=== PATIENT | female | born 1955 | race Caucasian/White ===

== ENCOUNTER 2017-03-24 13:00 | Inpatient (IN) | payer MEDICARE ==
[~2017-03-24] VITALS: Ht 157.5 cm; Wt 78.6 kg
[~2017-03-24 13:00] MED LIST: AMLO5 PO; Acular3 ML LEFTEYE; BUSP15 PO; Bactrim Ds Tab1 EACH PO; CETI5 PO; ERYT.5TO LEFTEYE; Flonase 0.05% N16 GM; IBUP800 PO; Keppra1000 MG PO; Keppra750 MG PO; LAMO100 PO; Lamictal150 MG PO; Levetiracetam1000 MG PO; METF500 PO; METO25ER PO; Norco 5-325 Ta1 EACH PO; Ocuflox5 ML LEFTEYE; QUET25 PO; RANI150 PO; SODCHL2SO BOTHEYES
[2017-03-24] MEDS ORDERED: Zantac150 MG PO (13:28)
[2017-03-24] MEDS ORDERED: BUSP15 PO ×2 (13:28)
[2017-03-24] MEDS ORDERED: LAMO100 PO ×2 (13:28)
[2017-03-24] MEDS ORDERED: ALBU90OI ×2 (13:28)
[2017-03-24] MEDS ORDERED: LEVE500 PO ×2 (13:28)
[2017-03-24] MEDS ORDERED: IBUP800 ×2 (13:28)
[2017-03-24] MEDS ORDERED: QUET100 PO ×2 (13:28)
[2017-03-24] MEDS ORDERED: METO25ER PO ×2 (13:29)
[2017-03-24] MEDS ORDERED: ASPI81CH PO ×2 (13:29)
[2017-03-24] MEDS ORDERED: METF500C (13:29)
[2017-03-24] MEDS ORDERED: SODCHL3.5O ×2 (13:29)
[2017-03-24 13:37] LABS: BASOPHILS ABSOLUTE AUTO 0.06 K/mm3 (0.00-0.23); BASOPHILS PERCENT AUTO 0 % (0-2); EOSINOPHILS PERCENT AUTO 0 % (0-6); Hematocrit 40.7 % (33.0-51.0); Hemoglobin 13.5 g/dL (11.5-16.0); IMMATURE GRAN ABSOLUTE AUTO 0.17 K/mm3 (0.00-0.10); IMMATURE GRAN PERCENT AUTO 1 % (0-1); LYMPHOCYTES ABSOLUTE AUTO 0.96 K/mm3 (0.84-5.20); LYMPHOCYTES PERCENT AUTO 5 % (21-46); MONOCYTES ABSOLUTE AUTO 1.34 K/mm3 (0.16-1.47); MONOCYTES PERCENT AUTO 7 % (4-13); Mean Corpuscular HGB 28.1 pg (26.0-34.0); Mean Corpuscular HGB Conc 33.2 g/dL (31.5-36.5); Mean Corpuscular Volume 85 fL (80-100); Mean Platelet Volume 9.7 fL (9.1-12.4); NEUTROPHILS ABSOLUTE AUTO 16.77 K/mm3 (1.96-9.15); NEUTROPHILS PERCENT AUTO 87 % (41-73); Platelet Count 281 K/mm3 (150-400); RDW Standard Deviation 36.5 fL (35.1-46.3); Red Blood Cell Count 4.81 M/mm3 (3.80-5.20)
[2017-03-24 13:53] LABS: Source, Urine Clean Catch
[2017-03-24 13:54] LABS: Alanine Aminotransfer (ALT/SGP 18 U/L (12-78); Albumin/Globulin Ratio 1.1 (0.8-1.8); Alk Phos 73 U/L (50-136); Anion Gap 10 mmol/L (6-16); Aspartate Aminotrans (AST/SGOT 12 U/L (12-37); Blood Urea Nitrogen 8 mg/dL (8-24); Bun/Creatinine Ratio 9.7 (12.0-20.0); CO2, Blood 23 mmol/L (21-32); Calcium, Blood 9.2 mg/dL (8.5-10.1); Chloride, Blood 101 mmol/L (98-108); Creatinine, Blood 0.82 mg/dL (0.40-1.00); Globulin, Blood 3.8 g/dL (2.2-4.0); Glomerular Filtration Rate >60 (60-); Glucose, Blood 196 mg/dL (70-99); Potassium, Blood 3.3 mmol/L (3.5-5.5); Sodium, Blood 134 mmol/L (136-145); Total Protein, Blood 7.8 g/dL (6.4-8.2)
[2017-03-24 14:00] LABS: Bilirubin, Urine Neg (Neg); Blood, Urine 4+ (Neg); Glucose Qualitative, Urine Neg (Neg); Ketones, Urine Neg (Neg); Leukocyte Esterase, Urine 3+ (Neg); Nitrite, Urine Pos (Neg); Protein, Urine 3+ (Neg); Specific Gravity, Urine 1.015 (1.003-1.022); Urobilinogen, Urine NORM (Normal)
[2017-03-24 14:05] LABS: Appearance, Urine Hazy (Clear); Color, Urine Yellow (P-Yellow); White Blood Cells, Urine TNTC /hpf (0-5)
[2017-03-24 14:06] LABS: Bacteria Mod /hpf; Squamous Epithelial Cells Few /hpf (Few)
[2017-03-24 14:17] LABS: Influenza A Negative (NEGATIVE); Influenza B Negative (NEGATIVE)
[2017-03-25 05:44] LABS: Hematocrit 36.5 % (33.0-51.0); Hemoglobin 11.8 g/dL (11.5-16.0); Mean Corpuscular HGB 28.3 pg (26.0-34.0); Mean Corpuscular HGB Conc 32.3 g/dL (31.5-36.5); Platelet Count 215 K/mm3 (150-400); RDW Coefficient Variation 12.4 % (11.7-14.2); RDW Standard Deviation 39.7 fL (35.1-46.3); Red Blood Cell Count 4.17 M/mm3 (3.80-5.20); White Blood Cell Count 14.75 K/mm3 (4.00-11.30)
[2017-03-25 05:50] LABS: Mean Corpuscular Volume 88 fL (80-100)
[2017-03-25 06:05] LABS: Albumin, Blood 3.1 g/dL (3.4-5.0); Anion Gap 9 mmol/L (6-16); Blood Urea Nitrogen 9 mg/dL (8-24); Bun/Creatinine Ratio 9.1 (12.0-20.0); CO2, Blood 26 mmol/L (21-32); Calcium, Blood 8.3 mg/dL (8.5-10.1); Chloride, Blood 104 mmol/L (98-108); Creatinine, Blood 0.99 mg/dL (0.40-1.00); Glomerular Filtration Rate >60 (60-); Glucose, Blood 118 mg/dL (70-99); Phosphorus, Blood 2.1 mg/dL (2.5-4.9); Potassium, Blood 3.8 mmol/L (3.5-5.5); Sodium, Blood 139 mmol/L (136-145)
[2017-03-26 05:44] LABS: BASOPHILS ABSOLUTE AUTO 0.02 K/mm3 (0.00-0.23); BASOPHILS PERCENT AUTO 0 % (0-2); EOSINOPHILS PERCENT AUTO 0 % (0-6); Hematocrit 32.3 % (33.0-51.0); Hemoglobin 10.7 g/dL (11.5-16.0); IMMATURE GRAN ABSOLUTE AUTO 0.08 K/mm3 (0.00-0.10); IMMATURE GRAN PERCENT AUTO 1 % (0-1); LYMPHOCYTES ABSOLUTE AUTO 1.21 K/mm3 (0.84-5.20); LYMPHOCYTES PERCENT AUTO 10 % (21-46); MONOCYTES ABSOLUTE AUTO 1.03 K/mm3 (0.16-1.47); MONOCYTES PERCENT AUTO 9 % (4-13); Mean Corpuscular HGB 28.4 pg (26.0-34.0); Mean Corpuscular HGB Conc 33.1 g/dL (31.5-36.5); Mean Corpuscular Volume 86 fL (80-100); Mean Platelet Volume 10.1 fL (9.1-12.4); NEUTROPHILS ABSOLUTE AUTO 9.28 K/mm3 (1.96-9.15); NEUTROPHILS PERCENT AUTO 80 % (41-73); Platelet Count 190 K/mm3 (150-400); RDW Standard Deviation 37.4 fL (35.1-46.3); Red Blood Cell Count 3.77 M/mm3 (3.80-5.20); White Blood Cell Count 11.62 K/mm3 (4.00-11.30)
[2017-03-26 06:13] LABS: Anion Gap 8 mmol/L (6-16); Blood Urea Nitrogen 6 mg/dL (8-24); Bun/Creatinine Ratio 7.1 (12.0-20.0); CO2, Blood 24 mmol/L (21-32); Calcium, Blood 8.3 mg/dL (8.5-10.1); Chloride, Blood 101 mmol/L (98-108); Creatinine, Blood 0.85 mg/dL (0.40-1.00); Glomerular Filtration Rate >60 (60-); Glucose, Blood 115 mg/dL (70-99); Potassium, Blood 3.3 mmol/L (3.5-5.5); Sodium, Blood 133 mmol/L (136-145)
[2017-03-27 10:07] LABS: Anion Gap 10 mmol/L (6-16); Blood Urea Nitrogen 6 mg/dL (8-24); Bun/Creatinine Ratio 8.1 (12.0-20.0); CO2, Blood 26 mmol/L (21-32); Calcium, Blood 8.6 mg/dL (8.5-10.1); Chloride, Blood 99 mmol/L (98-108); Creatinine, Blood 0.74 mg/dL (0.40-1.00); Glomerular Filtration Rate >60 (60-); Glucose, Blood 170 mg/dL (70-99); Magnesium, Blood 2.1 mg/dL (1.6-2.4); Potassium, Blood 3.1 mmol/L (3.5-5.5); Sodium, Blood 135 mmol/L (136-145)
[2017-03-28 06:45] LABS: Anion Gap 9 mmol/L (6-16); Blood Urea Nitrogen 7 mg/dL (8-24); Bun/Creatinine Ratio 8.7 (12.0-20.0); CO2, Blood 27 mmol/L (21-32); Calcium, Blood 8.7 mg/dL (8.5-10.1); Chloride, Blood 98 mmol/L (98-108); Glomerular Filtration Rate >60 (60-); Glucose, Blood 112 mg/dL (70-99); Sodium, Blood 134 mmol/L (136-145)
[2017-03-29 05:36] LABS: BASOPHILS ABSOLUTE AUTO 0.04 K/mm3 (0.00-0.23); BASOPHILS PERCENT AUTO 1 % (0-2); EOSINOPHILS ABSOLUTE AUTO 0.07 K/mm3 (0.00-0.68); EOSINOPHILS PERCENT AUTO 1 % (0-6); Hematocrit 35.8 % (33.0-51.0); Hemoglobin 12.1 g/dL (11.5-16.0); IMMATURE GRAN ABSOLUTE AUTO 0.04 K/mm3 (0.00-0.10); IMMATURE GRAN PERCENT AUTO 1 % (0-1); LYMPHOCYTES ABSOLUTE AUTO 1.59 K/mm3 (0.84-5.20); LYMPHOCYTES PERCENT AUTO 21 % (21-46); MONOCYTES ABSOLUTE AUTO 0.84 K/mm3 (0.16-1.47); MONOCYTES PERCENT AUTO 11 % (4-13); Mean Corpuscular HGB 27.9 pg (26.0-34.0); Mean Corpuscular HGB Conc 33.8 g/dL (31.5-36.5); Mean Platelet Volume 9.8 fL (9.1-12.4); NEUTROPHILS ABSOLUTE AUTO 4.99 K/mm3 (1.96-9.15); NEUTROPHILS PERCENT AUTO 66 % (41-73); Platelet Count 301 K/mm3 (150-400); RDW Coefficient Variation 11.8 % (11.7-14.2); RDW Standard Deviation 35.7 fL (35.1-46.3); Red Blood Cell Count 4.34 M/mm3 (3.80-5.20); White Blood Cell Count 7.57 K/mm3 (4.00-11.30)
[2017-03-29 05:38] LABS: Mean Corpuscular Volume 83 fL (80-100)
[2017-03-29 05:58] LABS: Magnesium, Blood 2.4 mg/dL (1.6-2.4)
[2017-03-29 05:59] LABS: Anion Gap 9 mmol/L (6-16); Blood Urea Nitrogen 7 mg/dL (8-24); Bun/Creatinine Ratio 9.5 (12.0-20.0); CO2, Blood 28 mmol/L (21-32); Calcium, Blood 9.1 mg/dL (8.5-10.1); Chloride, Blood 99 mmol/L (98-108); Creatinine, Blood 0.73 mg/dL (0.40-1.00); Glomerular Filtration Rate >60 (60-); Glucose, Blood 119 mg/dL (70-99); Potassium, Blood 3.2 mmol/L (3.5-5.5); Sodium, Blood 136 mmol/L (136-145)
[2017-03-29] MEDS ORDERED: MIRALAX17 GM PO ×2 (12:40)
[2017-04-02] MEDS ORDERED: Invanz1 GM IV (12:10)
[2018-01-05] MEDS ORDERED: IBUP800 PO (13:06)
[2018-01-05] MEDS ORDERED: ALBU90OI INH (13:06)
[2018-01-05] MEDS ORDERED: Zofran4 MG PO (16:40)
[2018-01-05] MEDS ORDERED: Cipro500 MG PO (16:40)
== END 2017-03-29 17:43 | disposition home health service (06) | DRG 872 ==
LOC: ER 13:00 → MEDS 17:52 → ENPENDDIS 03-29 12:00 → MEDS 03-29 17:43
PROVIDERS: Emergency Medicine; Internal Medicine
PROC: 3E0234Z Introduction of Serum, Toxoid and Vaccine into Muscle, Percutaneous Approach (ICD-10-PCS; principal; 2017-03-24)
DX: A41.51 Sepsis due to Escherichia coli [E. coli] (principal); E87.1 Hypo-osmolality and hyponatremia; N10 Acute pyelonephritis; N39.0 Urinary tract infection, site not specified; E11.9 Type 2 diabetes mellitus without complications; Z16.12 Extended spectrum beta lactamase (ESBL) resistance; F31.9 Bipolar disorder, unspecified; I10 Essential (primary) hypertension; E87.6 Hypokalemia; G40.909 Epilepsy, unspecified, not intractable, without status epilepticus; Z88.8 Allergy status to other drugs, medicaments and biological substances; Z79.84 Long term (current) use of oral hypoglycemic drugs; Z79.82 Long term (current) use of aspirin; Z79.899 Other long term (current) drug therapy; Z87.891 Personal history of nicotine dependence; Z23 Encounter for immunization
CPT/HCPCS: 36415; 71046; 76705; 80048; 80053; 80069; 81001; 82947; 83036; 83605; 83690; 83735; 85025; 85027; 87040; 87077; 87086; 87186; 87804; 93005; 93010; 94640; 94760; 96365; 96375; 99285; G0008; J0696; J1650; J2185; J2270; J2405; J2765; J3480; J7030; Q2038

== ENCOUNTER 2017-03-30 01:10 | Day surgery (SDC) | payer MEDICARE ==
[~2017-03-30 01:10] MED LIST changes: +ALBU90OI; +ASPI81CH PO; +IBUP800; +LEVE500 PO; +METF500C; +MIRALAX17 GM PO; +QUET100 PO; +SODCHL3.5O; +Zantac150 MG PO
[2017-03-31] MEDS ORDERED: [UNRECOGNIZED DRUG - CODE] PO (14:46)
[2017-04-02] MEDS ORDERED: Invanz1 GM IV (12:10)
[2018-01-05] MEDS ORDERED: IBUP800 PO (13:06)
[2018-01-05] MEDS ORDERED: ALBU90OI INH (13:06)
[2018-01-05] MEDS ORDERED: Cipro500 MG PO (16:40)
[2018-01-05] MEDS ORDERED: Zofran4 MG PO (16:40)
== END 2017-03-30 11:52 | disposition home or self-care (01) ==
LOC: ATC 01:10
DX: A41.9 Sepsis, unspecified organism (principal); N10 Acute pyelonephritis; F31.9 Bipolar disorder, unspecified; E11.9 Type 2 diabetes mellitus without complications; I10 Essential (primary) hypertension; J45.909 Unspecified asthma, uncomplicated
CPT/HCPCS: 96374; J1335

== ENCOUNTER 2017-03-31 00:22 | Day surgery (SDC) | payer MEDICARE ==
[~2017-03-31 00:22] MED LIST changes: -METF500C; -Zantac150 MG PO
[2017-03-31] MEDS ORDERED: [UNRECOGNIZED DRUG - CODE] PO (14:46)
[2017-04-02] MEDS ORDERED: Invanz1 GM IV (12:10)
== END 2017-03-31 22:43 | disposition home or self-care (01) ==
LOC: ATC 00:22
DX: A41.9 Sepsis, unspecified organism (principal); N10 Acute pyelonephritis; F31.9 Bipolar disorder, unspecified; E11.9 Type 2 diabetes mellitus without complications; I10 Essential (primary) hypertension; Z87.891 Personal history of nicotine dependence; J45.909 Unspecified asthma, uncomplicated
CPT/HCPCS: 96365; J1335

== ENCOUNTER 2017-03-31 10:59 | Observation (INO) | payer MEDICARE ==
[~2017-03-31] VITALS: Ht 157.5 cm; Wt 77.0 kg
[~2017-03-31 10:59] MED LIST changes: +METF500C; +Zantac150 MG PO
[2017-03-31 12:30] LABS: BASOPHILS ABSOLUTE AUTO 0.04 K/mm3 (0.00-0.23); BASOPHILS PERCENT AUTO 1 % (0-2); EOSINOPHILS ABSOLUTE AUTO 0.04 K/mm3 (0.00-0.68); EOSINOPHILS PERCENT AUTO 1 % (0-6); Hematocrit 36.8 % (33.0-51.0); Hemoglobin 12.3 g/dL (11.5-16.0); IMMATURE GRAN ABSOLUTE AUTO 0.04 K/mm3 (0.00-0.10); IMMATURE GRAN PERCENT AUTO 1 % (0-1); LYMPHOCYTES ABSOLUTE AUTO 1.58 K/mm3 (0.84-5.20); LYMPHOCYTES PERCENT AUTO 20 % (21-46); MONOCYTES ABSOLUTE AUTO 0.49 K/mm3 (0.16-1.47); MONOCYTES PERCENT AUTO 6 % (4-13); Mean Corpuscular HGB 27.8 pg (26.0-34.0); Mean Corpuscular HGB Conc 33.4 g/dL (31.5-36.5); Mean Corpuscular Volume 83 fL (80-100); Mean Platelet Volume 9.8 fL (9.1-12.4); NEUTROPHILS ABSOLUTE AUTO 5.79 K/mm3 (1.96-9.15); NEUTROPHILS PERCENT AUTO 73 % (41-73); Platelet Count 424 K/mm3 (150-400); RDW Coefficient Variation 11.9 % (11.7-14.2); RDW Standard Deviation 36.1 fL (35.1-46.3); Red Blood Cell Count 4.43 M/mm3 (3.80-5.20); White Blood Cell Count 7.98 K/mm3 (4.00-11.30)
[2017-03-31 12:52] LABS: Alanine Aminotransfer (ALT/SGP 20 U/L (12-78); Albumin, Blood 3.4 g/dL (3.4-5.0); Albumin/Globulin Ratio 0.8 (0.8-1.8); Alk Phos 74 U/L (50-136); Anion Gap 11 mmol/L (6-16); Aspartate Aminotrans (AST/SGOT 13 U/L (12-37); Bilirubin, Total 0.4 mg/dL (0.1-1.0); Blood Urea Nitrogen 6 mg/dL (8-24); Bun/Creatinine Ratio 7.6 (12.0-20.0); CO2, Blood 27 mmol/L (21-32); Calcium, Blood 9.2 mg/dL (8.5-10.1); Chloride, Blood 97 mmol/L (98-108); Creatinine, Blood 0.79 mg/dL (0.40-1.00); Ethanol (Alcohol), Blood, Med <3 mg/dL; Globulin, Blood 4.3 g/dL (2.2-4.0); Glomerular Filtration Rate >60 (60-); Glucose, Blood 128 mg/dL (70-99); Potassium, Blood 3.3 mmol/L (3.5-5.5); Salicylate 2.2 mg/dL (2.8-20.0); Sodium, Blood 135 mmol/L (136-145); Total Protein, Blood 7.7 g/dL (6.4-8.2)
[2017-03-31 12:58] LABS: Acetaminophen, Random <2.0 ug/mL (10.0-30.0)
[2017-03-31] MEDS ORDERED: [UNRECOGNIZED DRUG - CODE] PO ×2 (14:46)
[2017-03-31 17:06] LABS: Source, Urine Voided
[2017-03-31 17:22] LABS: Appearance, Urine Clear (Clear); Bilirubin, Urine Neg (Neg); Blood, Urine 3+ (Neg); Color, Urine Yellow (P-Yellow); Glucose Qualitative, Urine Neg (Neg); Ketones, Urine Neg (Neg); Leukocyte Esterase, Urine 1+ (Neg); Nitrite, Urine Neg (Neg); Protein, Urine Neg (Neg); Urobilinogen, Urine NORM (Normal)
[2017-03-31 17:36] LABS: U Amphetamine Screen Not Detected; U Barbituate Screen Not Detected; U Benzodiazapine Screen DETECTED; U Buprenorphine Screen Not Detected; U Cannabinoids Screen DETECTED; U Cocaine Screen Not Detected; U Methadone Screen Not Detected; U Methamphetamine Screen Not Detected; U Opiates Screen Not Detected; U Oxycodone Screen Not Detected; U Phencyclidine Screen Not Detected; U Propoxyphene Screen Not Detected
[2017-03-31 18:42] LABS: Bacteria Few /hpf; Red Blood Cells, Urine 0-2 /hpf (0-2); Squamous Epithelial Cells Few /hpf (Few)
[2017-04-01 05:08] LABS: BASOPHILS ABSOLUTE AUTO 0.05 K/mm3 (0.00-0.23); BASOPHILS PERCENT AUTO 1 % (0-2); EOSINOPHILS ABSOLUTE AUTO 0.11 K/mm3 (0.00-0.68); EOSINOPHILS PERCENT AUTO 1 % (0-6); Hematocrit 37.1 % (33.0-51.0); Hemoglobin 12.1 g/dL (11.5-16.0); IMMATURE GRAN ABSOLUTE AUTO 0.05 K/mm3 (0.00-0.10); IMMATURE GRAN PERCENT AUTO 1 % (0-1); LYMPHOCYTES ABSOLUTE AUTO 2.58 K/mm3 (0.84-5.20); LYMPHOCYTES PERCENT AUTO 31 % (21-46); MONOCYTES ABSOLUTE AUTO 0.67 K/mm3 (0.16-1.47); MONOCYTES PERCENT AUTO 8 % (4-13); Mean Corpuscular HGB 27.8 pg (26.0-34.0); Mean Corpuscular HGB Conc 32.6 g/dL (31.5-36.5); Mean Corpuscular Volume 85 fL (80-100); Mean Platelet Volume 9.6 fL (9.1-12.4); NEUTROPHILS ABSOLUTE AUTO 4.82 K/mm3 (1.96-9.15); NEUTROPHILS PERCENT AUTO 58 % (41-73); Platelet Count 412 K/mm3 (150-400); RDW Coefficient Variation 12.1 % (11.7-14.2); RDW Standard Deviation 37.4 fL (35.1-46.3); Red Blood Cell Count 4.36 M/mm3 (3.80-5.20); White Blood Cell Count 8.28 K/mm3 (4.00-11.30)
[2017-04-01 05:25] LABS: Alanine Aminotransfer (ALT/SGP 17 U/L (12-78); Albumin/Globulin Ratio 0.8 (0.8-1.8); Alk Phos 69 U/L (50-136); Anion Gap 8 mmol/L (6-16); Aspartate Aminotrans (AST/SGOT 11 U/L (12-37); Bilirubin, Total 0.3 mg/dL (0.1-1.0); Blood Urea Nitrogen 9 mg/dL (8-24); Bun/Creatinine Ratio 10.2 (12.0-20.0); CO2, Blood 30 mmol/L (21-32); Calcium, Blood 8.9 mg/dL (8.5-10.1); Chloride, Blood 102 mmol/L (98-108); Creatinine, Blood 0.88 mg/dL (0.40-1.00); Glomerular Filtration Rate >60 (60-); Glucose, Blood 131 mg/dL (70-99); Potassium, Blood 3.7 mmol/L (3.5-5.5); Sodium, Blood 140 mmol/L (136-145)
[2017-04-02] MEDS ORDERED: Invanz1 GM IV ×2 (12:10)
[2018-01-05] MEDS ORDERED: IBUP800 PO (13:06)
[2018-01-05] MEDS ORDERED: ALBU90OI INH (13:06)
[2018-01-05] MEDS ORDERED: Cipro500 MG PO (16:40)
[2018-01-05] MEDS ORDERED: Zofran4 MG PO (16:40)
== END 2017-04-02 18:04 | disposition home or self-care (01) ==
LOC: ER 10:59 → MEDS 11:00
PROVIDERS: Emergency Medicine; Internal Medicine
DX: R41.82 Altered mental status, unspecified (principal); G93.40 Encephalopathy, unspecified; N39.0 Urinary tract infection, site not specified; B96.29 Other Escherichia coli [E. coli] as the cause of diseases classified elsewhere; I10 Essential (primary) hypertension; E11.9 Type 2 diabetes mellitus without complications; K21.9 Gastro-esophageal reflux disease without esophagitis; F12.90 Cannabis use, unspecified, uncomplicated; F31.9 Bipolar disorder, unspecified; J45.909 Unspecified asthma, uncomplicated; E66.9 Obesity, unspecified; G40.909 Epilepsy, unspecified, not intractable, without status epilepticus; E87.1 Hypo-osmolality and hyponatremia; E87.6 Hypokalemia; Z79.899 Other long term (current) drug therapy; Z68.36 Body mass index [BMI] 36.0-36.9, adult; Z88.8 Allergy status to other drugs, medicaments and biological substances; Z98.51 Tubal ligation status; Z98.890 Other specified postprocedural states; Z87.891 Personal history of nicotine dependence
CPT/HCPCS: 36415; 80053; 81001; 82947; 84443; 85025; 87040; 87086; 93005; 93010; 96365; 96372; 96374; 96375; 99285; G0378; G0480; J1335; J1650; J2060; J2185; J7030

== ENCOUNTER 2017-04-03 00:52 | Day surgery (SDC) | payer MEDICARE ==
[~2017-04-03 00:52] MED LIST changes: +Invanz1 GM IV; +[UNRECOGNIZED DRUG - CODE] PO
[2018-01-05] MEDS ORDERED: ALBU90OI INH (13:06)
[2018-01-05] MEDS ORDERED: IBUP800 PO (13:06)
[2018-01-05] MEDS ORDERED: Zofran4 MG PO (16:40)
[2018-01-05] MEDS ORDERED: Cipro500 MG PO (16:40)
== END 2017-04-03 14:05 | disposition home or self-care (01) ==
LOC: ATC 00:52
DX: A41.9 Sepsis, unspecified organism (principal); N16 Renal tubulo-interstitial disorders in diseases classified elsewhere; E87.6 Hypokalemia; E87.1 Hypo-osmolality and hyponatremia; F31.9 Bipolar disorder, unspecified; G40.909 Epilepsy, unspecified, not intractable, without status epilepticus; E11.9 Type 2 diabetes mellitus without complications; I10 Essential (primary) hypertension; Z79.899 Other long term (current) drug therapy; Z79.84 Long term (current) use of oral hypoglycemic drugs; Z87.891 Personal history of nicotine dependence
CPT/HCPCS: 96365; 96366; J1335

== ENCOUNTER 2017-04-04 13:27 | Day surgery (SDC) | payer MEDICARE ==
[2018-01-05] MEDS ORDERED: ALBU90OI INH (13:06)
[2018-01-05] MEDS ORDERED: IBUP800 PO (13:06)
[2018-01-05] MEDS ORDERED: Cipro500 MG PO (16:40)
[2018-01-05] MEDS ORDERED: Zofran4 MG PO (16:40)
== END 2017-04-04 14:02 | disposition home or self-care (01) ==
LOC: ATC 13:27
DX: A41.9 Sepsis, unspecified organism (principal); N10 Acute pyelonephritis; N39.0 Urinary tract infection, site not specified; B96.29 Other Escherichia coli [E. coli] as the cause of diseases classified elsewhere; E11.9 Type 2 diabetes mellitus without complications; F31.9 Bipolar disorder, unspecified; J45.909 Unspecified asthma, uncomplicated; E66.9 Obesity, unspecified; I10 Essential (primary) hypertension; Z87.891 Personal history of nicotine dependence
CPT/HCPCS: 96374; J1335

== ENCOUNTER 2017-04-05 00:29 | Day surgery (SDC) | payer MEDICARE ==
[2018-01-05] MEDS ORDERED: IBUP800 PO (13:06)
[2018-01-05] MEDS ORDERED: ALBU90OI INH (13:06)
[2018-01-05] MEDS ORDERED: Cipro500 MG PO (16:40)
[2018-01-05] MEDS ORDERED: Zofran4 MG PO (16:40)
== END 2017-04-05 11:11 | disposition home or self-care (01) ==
LOC: ATC 00:29
DX: N39.0 Urinary tract infection, site not specified (principal); A41.9 Sepsis, unspecified organism; B96.29 Other Escherichia coli [E. coli] as the cause of diseases classified elsewhere; Z87.891 Personal history of nicotine dependence; N10 Acute pyelonephritis; E11.9 Type 2 diabetes mellitus without complications; I10 Essential (primary) hypertension
CPT/HCPCS: 96374; J1335

== ENCOUNTER 2017-04-06 00:48 | Day surgery (SDC) | payer MEDICARE ==
[2018-01-05] MEDS ORDERED: ALBU90OI INH (13:06)
[2018-01-05] MEDS ORDERED: IBUP800 PO (13:06)
[2018-01-05] MEDS ORDERED: Zofran4 MG PO (16:40)
[2018-01-05] MEDS ORDERED: Cipro500 MG PO (16:40)
== END 2017-04-06 11:06 | disposition home or self-care (01) ==
LOC: ATC 00:48
DX: N39.0 Urinary tract infection, site not specified (principal); B96.29 Other Escherichia coli [E. coli] as the cause of diseases classified elsewhere; E11.9 Type 2 diabetes mellitus without complications; F31.9 Bipolar disorder, unspecified; E66.9 Obesity, unspecified; I10 Essential (primary) hypertension; J45.909 Unspecified asthma, uncomplicated; Z87.891 Personal history of nicotine dependence
CPT/HCPCS: 96374; J1335

== ENCOUNTER 2017-04-07 00:43 | Day surgery (SDC) | payer MEDICARE ==
[2018-01-05] MEDS ORDERED: IBUP800 PO (13:06)
[2018-01-05] MEDS ORDERED: ALBU90OI INH (13:06)
[2018-01-05] MEDS ORDERED: Cipro500 MG PO (16:40)
[2018-01-05] MEDS ORDERED: Zofran4 MG PO (16:40)
== END 2017-04-07 11:48 | disposition home or self-care (01) ==
LOC: ATC 00:43
DX: N39.0 Urinary tract infection, site not specified (principal); B96.29 Other Escherichia coli [E. coli] as the cause of diseases classified elsewhere; F31.9 Bipolar disorder, unspecified; E11.9 Type 2 diabetes mellitus without complications; I10 Essential (primary) hypertension; E66.9 Obesity, unspecified; Z87.891 Personal history of nicotine dependence
CPT/HCPCS: 96374; J1335

== ENCOUNTER 2017-04-08 00:23 | Day surgery (SDC) | payer MEDICARE ==
[2018-01-05] MEDS ORDERED: ALBU90OI INH (13:06)
[2018-01-05] MEDS ORDERED: IBUP800 PO (13:06)
[2018-01-05] MEDS ORDERED: Cipro500 MG PO (16:40)
[2018-01-05] MEDS ORDERED: Zofran4 MG PO (16:40)
== END 2017-04-08 11:28 | disposition home or self-care (01) ==
LOC: ATC 00:23
DX: N39.0 Urinary tract infection, site not specified (principal); B96.29 Other Escherichia coli [E. coli] as the cause of diseases classified elsewhere; E11.9 Type 2 diabetes mellitus without complications; F31.9 Bipolar disorder, unspecified; E66.9 Obesity, unspecified; I10 Essential (primary) hypertension; Z87.891 Personal history of nicotine dependence
CPT/HCPCS: 96374; J1335

== ENCOUNTER 2017-04-09 00:44 | Day surgery (SDC) | payer MEDICARE ==
[2018-01-05] MEDS ORDERED: ALBU90OI INH (13:06)
[2018-01-05] MEDS ORDERED: IBUP800 PO (13:06)
[2018-01-05] MEDS ORDERED: Cipro500 MG PO (16:40)
[2018-01-05] MEDS ORDERED: Zofran4 MG PO (16:40)
== END 2017-04-09 11:06 | disposition home or self-care (01) ==
LOC: ATC 00:44
DX: A41.9 Sepsis, unspecified organism (principal); N10 Acute pyelonephritis; N39.0 Urinary tract infection, site not specified; B96.29 Other Escherichia coli [E. coli] as the cause of diseases classified elsewhere; I10 Essential (primary) hypertension; F31.9 Bipolar disorder, unspecified; J45.909 Unspecified asthma, uncomplicated; E66.9 Obesity, unspecified
CPT/HCPCS: 96374; J1335

== ENCOUNTER → 2018-08-30 | Outpatient (CLI) | payer MEDICARE ==
[~2018-08-30] MED LIST changes: +ALBU90OI INH; +Cipro500 MG PO; +Zofran4 MG PO
[2018-09-01 15:07] LABS: HPV 16 Negative (Negative); HPV 18 Negative (Negative); HPV OTHER HR TYPES Positive (Negative)
== END ==
LOC: LAB 19:48 → LAB SHORT 19:48
PROVIDERS: Registered Nurse Community Health
DX: Z12.4 Encounter for screening for malignant neoplasm of cervix (principal)
CPT/HCPCS: 87624; 87625; G0123

== ENCOUNTER 2019-04-04 06:48 | Day surgery (SDC) | payer MEDICARE, OTHER ==
[~2019-04-04] VITALS: Ht 157.5 cm; Wt 72.9 kg
[~2019-04-04 06:48] MED LIST changes: -METF500C; +METF500C PO
--- NOTE | 2019-04-04 07:02 | NUR ---
History, Chart, Medications and Allergies reviewed before start of procedure. Patient confirms NPO status and agrees with scheduled surgery. Patient reports taking colon prep and states she has clear results. Patient States Post-Procedure ride home has been arranged with her friend, Teresa Greene.
[2019-04-04] MEDS ORDERED: SODIUM CHLORIDE BOTHEYES (07:24)
[2019-04-04] MEDS ORDERED: MONT10T PO (07:26)
[2019-04-04] MEDS ORDERED: EZET10 PO (07:27)
--- NOTE | 2019-04-04 08:17 | NUR ---
04/04/19 0817 aKur Lagunas History, Chart, Medications and Allergies reviewed before start of procedure.MONITOR INTACT WITH CONTINUOUS PULSE OXIMETRY AND INTERMITTENT BP.3-LEAD EKG REVIEWED WITH PHYSICIAN PRIOR TO START OF PROCEDURE.O2 VIA N/C INTACT THROUGHOUT SEDATION/PROCEDURE. PATIENT DETERMINED TO BE ASA APPROPRIATE FOR PROPOFOL SEDATION PRIOR TO START OF PROCEDURE BY .
--- NOTE | 2019-04-04 08:49 | NUR ---
Discharge instructions reviewed with patient. Patient verbalizes understanding. Copy given to patient to take home. Discharged via wheelchair to private car for ride home.
== END 2019-04-04 23:01 | disposition home or self-care (01) ==
LOC: ORSCMMR 06:48 → ORD 08:00 → ORSCMMR 23:01
PROVIDERS: Internal Medicine Gastroenterology
PROC: 0DJD8ZZ Inspection of Lower Intestinal Tract, Via Natural or Artificial Opening Endoscopic (ICD-10-PCS; principal; 2019-04-04 08:00)
DX: Z12.11 Encounter for screening for malignant neoplasm of colon (principal); F31.9 Bipolar disorder, unspecified; E11.9 Type 2 diabetes mellitus without complications; I10 Essential (primary) hypertension; K21.9 Gastro-esophageal reflux disease without esophagitis; Z87.891 Personal history of nicotine dependence; Z79.84 Long term (current) use of oral hypoglycemic drugs; Z79.899 Other long term (current) drug therapy
CPT/HCPCS: 82947; J2704; J7120

== ENCOUNTER → 2019-09-21 | Outpatient (CLI) | payer MEDICARE ==
[~2019-09-21] MED LIST changes: +EZET10 PO; +MONT10T PO; +SODIUM CHLORIDE BOTHEYES
== END | disposition home or self-care (01) ==
LOC: LAB 12:30 → LAB SHORT 12:30
DX: R35.0 Frequency of micturition (principal)
CPT/HCPCS: 87086

== ENCOUNTER → 2021-06-05 | Outpatient (CLI) | payer MEDICARE ==
[2021-06-05 13:51] LABS: BASOPHILS ABSOLUTE AUTO 0.06 K/mm3 (0.00-0.23); BASOPHILS PERCENT AUTO 1 % (0-2); EOSINOPHILS ABSOLUTE AUTO 0.19 K/mm3 (0.00-0.68); EOSINOPHILS PERCENT AUTO 3 % (0-6); Hematocrit 38.8 % (33.0-51.0); Hemoglobin 12.7 g/dL (11.5-16.0); IMMATURE GRAN ABSOLUTE AUTO 0.02 K/mm3 (0.00-0.10); IMMATURE GRAN PERCENT AUTO 0 % (0-1); LYMPHOCYTES ABSOLUTE AUTO 2.38 K/mm3 (0.84-5.20); LYMPHOCYTES PERCENT AUTO 35 % (21-46); MONOCYTES ABSOLUTE AUTO 0.47 K/mm3 (0.16-1.47); MONOCYTES PERCENT AUTO 7 % (4-13); Mean Corpuscular HGB Conc 32.7 g/dL (31.5-36.5); Mean Corpuscular Volume 86 fL (80-100); Mean Platelet Volume 9.9 fL (9.1-12.4); NEUTROPHILS PERCENT AUTO 54 % (41-73); Platelet Count 346 K/mm3 (150-400); RDW Standard Deviation 40.4 fL (35.1-46.3); Red Blood Cell Count 4.54 M/mm3 (3.80-5.20); White Blood Cell Count 6.72 K/mm3 (4.00-11.30)
[2021-06-05 14:09] LABS: Alanine Aminotransfer (ALT/SGP 19 U/L (12-78); Albumin, Blood 3.9 g/dL (3.4-5.0); Albumin/Globulin Ratio 1.3 (0.8-1.8); Alk Phos 65 U/L (50-136); Anion Gap 8 mmol/L (6-16); Aspartate Aminotrans (AST/SGOT 12 U/L (12-37); Bilirubin, Total 0.3 mg/dL (0.1-1.0); Blood Urea Nitrogen 11 mg/dL (8-24); Bun/Creatinine Ratio 12.5 (12.0-20.0); CO2, Blood 28 mmol/L (21-32); Calcium, Blood 9.2 mg/dL (8.5-10.1); Chloride, Blood 106 mmol/L (98-108); Creatinine, Blood 0.88 mg/dL (0.40-1.00); Globulin, Blood 2.9 g/dL (2.2-4.0); Glomerular Filtration Rate >60 (60-); Glucose, Blood 87 mg/dL (70-99); Potassium, Blood 4.1 mmol/L (3.5-5.5); Sodium, Blood 142 mmol/L (136-145); Total Protein, Blood 6.8 g/dL (6.4-8.2); Uric Acid, Blood 4.6 mg/dL (2.6-6.0)
== END ==
LOC: LAB SHORT 13:40
PROVIDERS: Physician Assistant
DX: M25.561 Pain in right knee (principal); R03.0 Elevated blood-pressure reading, without diagnosis of hypertension
CPT/HCPCS: 80053; 84550; 85025

== ENCOUNTER → 2022-01-20 | Outpatient (CLI) | payer MEDICARE ==
[2022-01-22 17:10] LABS: HPV 16 Negative (Negative); HPV 18 Negative (Negative); HPV OTHER HR TYPES Negative (Negative)
== END | disposition home or self-care (01) ==
LOC: LAB SHORT 14:30 → LAB 14:30
PROVIDERS: Family Medicine
DX: Z12.4 Encounter for screening for malignant neoplasm of cervix (principal)
CPT/HCPCS: 87624; G0123

== ENCOUNTER → 2023-06-15 | Outpatient (CLI) | payer MEDICARE | LOC: LAB SHORT 17:06 → LAB 17:06 | DX: Z12.4 Encounter for screening for malignant neoplasm of cervix (principal) ==

== ENCOUNTER → 2024-09-26 | Outpatient (CLI) | payer MEDICARE ==
[2024-09-26 19:54] LABS: Creatinine, Urine Random 274.0 mg/dL (27.00-270.00); Microalb/Creat Ratio UR, Rand 36.058 mg/g (0.000-30.000); Microalbumin, Random Urine 98.8 mg/L (0.000-20.000)
== END ==
LOC: LAB 17:27 → LAB SHORT 17:27
PROVIDERS: Family Medicine
DX: E11.9 Type 2 diabetes mellitus without complications (principal)
CPT/HCPCS: 82043; 82570